=== PATIENT | female | born 1955 | race Caucasian/White ===

== ENCOUNTER 2016-12-29 12:08 | Observation (INO) | payer OTHER ==
[~2016-12-29] VITALS: Ht 162.6 cm; Wt 94.1 kg
[~2016-12-29 12:08] MED LIST: ASPIR 8181 M1 PO; BACTRIM,SEPT1 TABLET PO; GLIPIZIDE5 MG PO; KEFLEX500 MG PO; LISINOPRIL10 MG PO; PRAVASTATIN SOD40 MG PO
[2016-12-29 12:44] LABS: MCH 30.4 PG (29.0-34.0); MCHC 32.3 G/DL (30.0-36.0); MCV 94.1 FL (83-99); MEAN PLAT.VOLUME 10.2 uM^3 (9.5-12.4); PLATELET COUNT 276 K/uL (156-360); RBC DIS.WIDTH-CV 13.2 % (11.8-14.6); RBC DIS.WIDTH-SD 45.4 % (39-53); RED BLOOD COUNT 4.57 M/uL (3.80-5.20); WHITE BLOOD COUNT 8.3 K/uL (4.1-10.2)
[2016-12-29 12:55] LABS: CHLORIDE 107 mEq/L (99-109); POTASSIUM 3.8 mEq/L (3.7-5.4); SODIUM 141 mEq/L (136-147)
[2016-12-29 12:57] LABS: GLUCOSE 198 mg/dL (70-99)
[2016-12-29 12:58] LABS: ANION GAP 8 MEQ/L (2-14)
[2016-12-29 13:01] LABS: GFR ESTIMATE (CALCULATED) > 59 mL/min/
[2016-12-29 13:02] LABS: UREA NITROGEN (BUN) 5 mg/dL (9-23)
[2016-12-29 13:05] LABS: TROP-I INTERPRETATION NEGATIVE; TROPONIN-I < 0.01 ng/mL (0.0-0.30)
[2016-12-29] MEDS ORDERED: JANUVIA100 MG PO (14:11)
[2016-12-29] MEDS ORDERED: METFORMIN HCL1000 MG PO (14:12)
[2016-12-29] MEDS ORDERED: LIPITOR40 MG PO (15:31)
[2016-12-29 16:20] LABS: D-DIMER ELISA 0.81 mg/L FEU (< 0.57); PROTHROMBIN TIME 10.5 (9.2-11.2); PTT 27.1 (25-32)
[2016-12-29 19:55] VITALS: BP 112/63
[2016-12-29 20:56] LABS: TROP-I INTERPRETATION NEGATIVE; TROPONIN-I 0.01 ng/mL (0.0-0.30)
[2016-12-30] VITALS: BP 111/53
[2016-12-30 02:24] LABS: TROP-I INTERPRETATION NEGATIVE; TROPONIN-I < 0.01 ng/mL (0.0-0.30)
[2016-12-30 03:50] VITALS: BP 103/69
[2016-12-30 06:08] LABS: HEMATOCRIT 40.1 % (36.0-46.0); MCHC 32.4 G/DL (30.0-36.0); MCV 95.7 FL (83-99); MEAN PLAT.VOLUME 10.8 uM^3 (9.5-12.4); PLATELET COUNT 248 K/uL (156-360); RBC DIS.WIDTH-CV 13.4 % (11.8-14.6); RBC DIS.WIDTH-SD 46.8 % (39-53); RED BLOOD COUNT 4.19 M/uL (3.80-5.20); WHITE BLOOD COUNT 9.5 K/uL (4.1-10.2)
[2016-12-30 06:43] LABS: ANION GAP 6 MEQ/L (2-14); CHLORIDE 107 MEQ/L (99-109); GFR ESTIMATE (CALCULATED) > 59 mL/min/; POTASSIUM 4.5 MEQ/L (3.7-5.4); SAMPLE HEMOLYSIS CHECK 0; SAMPLE ICTERIC CHECK 0; SAMPLE LIPEMIA CHECK 0; SODIUM 143 MEQ/L (136-147); UREA NITROGEN (BUN) 7 mg/dL (9-23)
[2016-12-30 06:44] LABS: GLUCOSE 102 mg/dL (70-99)
[2016-12-30 07:52] VITALS: BP 126/64
[2016-12-30] MEDS ORDERED: VENTOLIN HFA18 GM IH (08:51)
== END 2016-12-30 09:59 | disposition home or self-care (01) ==
LOC: EME 12:08 → EDOF 15:45 → 5WEST 19:33
PROVIDERS: Physician Assistant Medical; Student in an Organized Health Care Education/Training Program
DX: R07.89 Other chest pain (principal); E11.628 Type 2 diabetes mellitus with other skin complications; I10 Essential (primary) hypertension; E66.9 Obesity, unspecified; Z68.35 Body mass index [BMI] 35.0-35.9, adult; L03.313 Cellulitis of chest wall; R20.0 Anesthesia of skin; F17.200 Nicotine dependence, unspecified, uncomplicated; Z86.73 Personal history of transient ischemic attack (TIA), and cerebral infarction without residual deficits; I71.2 Thoracic aortic aneurysm, without rupture; E78.5 Hyperlipidemia, unspecified; Z85.41 Personal history of malignant neoplasm of cervix uteri; Z79.82 Long term (current) use of aspirin; Z79.84 Long term (current) use of oral hypoglycemic drugs; Z82.49 Family history of ischemic heart disease and other diseases of the circulatory system
CPT/HCPCS: 71020; 71275; 80048; 81003; 82948; 84484; 85027; 85379; 85610; 85730; 93005; 93970; 99281; 99284; G0378; J1650; J1815

== ENCOUNTER → 2017-07-22 | Outpatient (CLI) | payer BC ==
[~2017-07-22] MED LIST changes: +JANUVIA100 MG PO; +LIPITOR40 MG PO; +METFORMIN HCL1000 MG PO; +VENTOLIN HFA18 GM IH
== END | disposition home or self-care (01) ==
LOC: CDC 12:51
DX: Z01.810 Encounter for preprocedural cardiovascular examination (principal); I48.91 Unspecified atrial fibrillation; R94.31 Abnormal electrocardiogram [ECG] [EKG]
CPT/HCPCS: 93000